=== PATIENT | male | born 1960 | race Hispanic/Latino ===

== ENCOUNTER 2017-04-11 10:28 | Observation (INO) | payer OTHER ==
[~2017-04-11] VITALS: Ht 167.6 cm; Wt 90.7 kg
[2017-04-11 11:27] LABS: BASOPHILS % 0.3 % (0.0-1.0); EOSINOPHILS # (AUTO) 0.1 (0.0-0.4); EOSINOPHILS % 1.6 % (0.0-6.0); HEMATOCRIT 36.7 % (38.2-49.6); HEMOGLOBIN 13.2 g/dL (14.0-18.0); LYMPHOCYTES # (AUTO) 1.9 (1.0-3.2); LYMPHOCYTES % 29.8 % (18.0-39.1); MEAN CORPUSCULAR HEMOGLOBIN 32.1 pg (28-32); MEAN CORPUSCULAR VOLUME 89.3 fL (81-99); MONOCYTES # (AUTO) 0.5 (0.2-0.8); MONOCYTES % 7.1 % (4.4-11.3); NEUTROPHILS # (AUTO) 3.9 (2.1-6.9); NEUTROPHILS % 60.9 % (38.7-80.0); PLATELET COUNT 197 x10e3/uL (140-360); RED BLOOD COUNT 4.11 x10e6/uL (4.3-5.7); RED CELL DISTRIBUTION WIDTH 12.8 % (11.7-14.4)
[2017-04-11 11:41] LABS: AMPHETAMINES SCREEN,URINE NEGATIVE (NEGATIVE); BENZODIAZEPINES SCREEN,URINE NEGATIVE (NEGATIVE); CANNABINOIDS SCREEN,URINE NEGATIVE (NEGATIVE); PHENCYCLIDINE SCREEN,URINE NEGATIVE (NEGATIVE)
[2017-04-11 11:41] LABS: INR 0.86; PROTHROMBIN TIME 12.1 seconds (11.9-14.5)
[2017-04-11 11:42] LABS: PARTIAL THROMBOPLASTIN TIME 21.6 seconds (23.8-35.5)
[2017-04-11 11:49] LABS: ALANINE AMINOTRANSFERASE 20 IU/L (0-55); ALBUMIN 4.3 g/dL (3.5-5.0); ALBUMIN/GLOBULIN RATIO 1.2 (0.8-2.0); ALKALINE PHOSPHATASE 51 IU/L (40-150); ANION GAP 14.1 mmol/L (8-16); BLOOD UREA NITROGEN 15 mg/dL (7-26); BUN/CREATININE RATIO 15 (6-25); CALCIUM 9.6 mg/dL (8.4-10.2); CARBON DIOXIDE 23 mmol/L (22-29); CHLORIDE 104 mmol/L (98-107); CREATINE KINASE 60 IU/L (30-200); CREATININE, SERUM 0.99 mg/dL (0.72-1.25); EST GLOMERULAR FILTRATION RATE > 60 ML/MIN (60-); GLUCOSE 99 mg/dL (74-118); POTASSIUM 4.1 mmol/L (3.5-5.1); SODIUM 137 mmol/L (136-145)
[2017-04-11 11:55] LABS: TROPONIN I 0.001 ng/mL (0-0.300)
[2017-04-11 12:01] LABS: ANISOCYTOSIS SLIGHT; EOSINOPHILS % (MANUAL) 2 % (0-7); LYMPHOCYTES % (MANUAL) 28 % (19-48); MONOCYTES % (MANUAL) 9 % (3.4-9.0); NEUTROPHILS % (MANUAL) 59 % (40-74); PLATELET ESTIMATE ADEQUATE; PLATELET MORPHOLOGY COMMENT NORMAL; RBC MORPHOLOGY COMMENT NORMAL
[2017-04-11] MEDS ORDERED: DIATRIZOATE MEGL/DIATRIZOA SOD 30 ML BTL PO ONE (14:12)
[2017-04-11] MEDS ORDERED: PANTOPRAZOLE INJ 80 MG in SODIUM CHLORIDE 0.9% 100 ML IV SCH (14:30)
--- NOTE | 2017-04-11 15:37 | Consultation ---
DATE OF CONSULTATION: April 11, 2017 GASTROENTEROLOGY CONSULTATION CHIEF COMPLAINT: Melena. HISTORY OF PRESENT ILLNESS: A very pleasant 57-year-old man coming with epigastric pain and melena, symptoms over the last few days. He also had some hypotension that has resolved. He takes nonsteroidals on a daily basis. PAST MEDICAL HISTORY: Not significant. See old records. He has some hypertension. FAMILY HISTORY: Noncontributory. SURGICAL HISTORY: Not significant. MEDICATIONS: See list. SOCIAL HISTORY: Lives at home. No toxic habits. REVIEW OF SYSTEMS: Patient's 12-point review of systems is negative except for the epigastric pain and some melena. ALLERGIES: NOT SIGNIFICANT. PHYSICAL EXAMINATION VITAL SIGNS: Blood pressure 140/80, pulse 70, temperature 98. GENERAL: A well-nourished man in no distress. HEENT: No pallor. ABDOMEN: Soft. Slightly tender in the epigastrium. ASSESSMENT AND PLAN: Melena. Hemoglobin is 13. I recommend a PPI. He needs a colonoscopy. Follow closely. Job#: [id number] NIKOLE
[2017-04-11] MEDS: SODIUM CHLORIDE 0.9% 1000ML 1,000 ML IV SCH ×2 (16:05→22:28)
[2017-04-11] MEDS: PANTOPRAZOL 40MG/SOD CHL 0.9% 50 ML IV SCH ×2 (16:06→19:36)
[2017-04-11] MEDS ORDERED: ASPIR 8181 MG PO (16:21)
[2017-04-11] MEDS ORDERED: SIMVASTATIN20 MG PO (16:21)
[2017-04-11] MEDS ORDERED: LISINOPRIL10 MG PO (16:21)
--- NOTE | 2017-04-11 17:17 | Diagnostic Imaging Report ---
PROCEDURE: CT ABDOMEN AND PELVIS WITH CONTRAST TECHNIQUE: The abdomen and pelvis were scanned utilizing a multidetector helical scanner from the diaphragm to the lesser trochanter after the IV administration of 100 cc Isovue 370 and the oral administration of Gastrografin. Coronal and sagittal multiplanar reformations were obtained. COMPARISON: None. INDICATIONS: GI BLEED FINDINGS: LOWER THORAX: Normal. HEPATOBILIARY: No focal hepatic lesion or intrahepatic biliary ductal dilatation. The gallbladder is unremarkable. SPLEEN: No splenomegaly. PANCREAS: No focal masses or ductal dilatation. ADRENALS: No adrenal nodules. KIDNEYS/URETERS: No hydronephrosis, stones, or solid mass lesions. PELVIC ORGANS/BLADDER: Urinary bladder is unremarkable. Prostate and seminal vesicles appear normal. PERITONEUM / RETROPERITONEUM: No ascites. No pneumoperitoneum. LYMPH NODES: No pelvic sidewall, retroperitoneal, or mesenteric lymphadenopathy. VESSELS: The abdominal aorta, major branch vessels, and iliac arterial systems are well-visualized and patent. Hepatic arterial anatomy appears conventional. 2 renal arteries perfuse each kidney. Portal vein, splenic vein, and central superior mesenteric vein are patent. GI TRACT: The large bowel is notable for multiple diverticula along the course of the descending and sigmoid colon, without wall thickening or adjacent inflammatory change. The appendix is normal. There is no small bowel dilatation to suggest obstruction. BONES AND SOFT TISSUES: No focal soft tissue abnormalities. No osseous destructive lesions. Mild degenerative joint disease of the hips. Multilevel degenerative disc changes of the lumbar spine. Healed fracture deformities of the right lateral eighth and ninth ribs. IMPRESSION: No acute intra-abdominal or pelvic CT abnormalities. Sigmoid diverticulosis without evidence of diverticulitis. Dictated by: Jeffry Haney M.D. on 04/11/2017 at 17:25 Electronically approved by: Jeffry Haney M.D. on 04/11/2017 at 17:25
[2017-04-11] MEDS ORDERED: SODIUM CHLORIDE 0.9% 50ML 50 ML ONE (17:34)
[2017-04-11] MEDS ORDERED: IOPAMIDOL 370 MG/ML 200 ML INFUS..BTL INJ ONE (17:34)
[2017-04-11 17:50] VITALS: BP 117/73
[2017-04-11] MEDS ORDERED: PEG (High)/E-LYTE SOLN 4,000 ML BTL PO NR (18:00)
[2017-04-11 18:26] VITALS: BP 117/73
[2017-04-11 20:00] VITALS: BP 128/81
[2017-04-11 20:19] LABS: HEMATOCRIT 33.2 % (38.2-49.6); HEMOGLOBIN 11.9 g/dL (14.0-18.0)
[2017-04-12] VITALS: BP 109/68
[2017-04-12] MEDS: PANTOPRAZOL 40MG/SOD CHL 0.9% 50 ML IV SCH ×6 (00:49→21:30)
[2017-04-12 00:51] LABS: HEMOGLOBIN 11.2 g/dL (14.0-18.0)
[2017-04-12 04:00] VITALS: BP 107/61
[2017-04-12] MEDS: SODIUM CHLORIDE 0.9% 1000ML 1,000 ML IV SCH ×4 (06:07→22:28)
[2017-04-12 06:28] LABS: HEMATOCRIT 30.8 % (38.2-49.6)
[2017-04-12 08:27] VITALS: BP 107/66
[2017-04-12] MEDS ORDERED: THIAMINE HCL INJ 100 MG in SODIUM CHLORIDE 0.9% 50ML 50 ML IV SCH (11:15)
[2017-04-12] MEDS ORDERED: THIAMINE HCL INJ 100 MG/ML 2ML VIAL IV ONE (11:15)
--- NOTE | 2017-04-12 11:38 | History and Physical ---
CHIEF COMPLAINT: Passing black stool. HISTORY OF PRESENT ILLNESS: This 57-year-old male patient, with history of chronic alcohol use, drinks a 16-ounce can of beer several times every day, has been drinking for several years, developed some abdominal discomfort and flu-like symptoms for the past 3 to 4 days. He started to notice black stool and went to see his primary care physician, Dr. Buchanan. The patient's blood pressure was unusually normal. He states it usually runs high. Also, he was taking aspirin. The patient was advised to stop the aspirin and go to the emergency room. The patient is admitted now for gastrointestinal bleeding. He had some abdominal discomfort and took some [place] with some relief. No fever. PAST MEDICAL HISTORY: Hypertension and alcohol dependence. PERSONAL HISTORY: Denies smoking. Drinks alcohol for more than 25 to 30 years. Used to do all the drugs in his 20s. The patient was told he might have hepatitis several years ago. SURGICAL HISTORY: Cataracts and left hand broken. MEDICATIONS 1. Lisinopril 10 mg daily. 2. Simvastatin 20 mg daily. 3. Aspirin 81 mg daily. REVIEW OF SYSTEMS: All other systems were reviewed. No complaints reported. PHYSICAL EXAMINATION VITALS: Blood pressure 109/68, pulse 94, temperature 98.5. HEENT: Normal. NECK: No JVD. LUNGS: Clear. ABDOMEN: Soft and nontender. Bowel sounds are normal. No ascites. LOWER EXTREMITIES: No edema. SKIN: Normal. No spider nevi. 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 LABS: Hemoglobin 13.2 on admission and dropped to 11. LFTs are normal. ASSESSMENT: Passing black stool with a history of chronic alcohol dependence, rule out esophageal varices, rule out gastritis. PLAN: GI consult for EGD and colonoscopy. Discussed with the patient at length to consider to stop drinking alcohol. Will place him on thiamine and folic acid. Hold aspirin. IV Protonix. Job#: [id number]
[2017-04-12 12:04] LABS: HEMATOCRIT 30.7 % (38.2-49.6)
[2017-04-12 12:24] VITALS: BP 107/67
[2017-04-12] MEDS ORDERED: PROPOFOL IV EMULSION 10 MG/ML 20 ML VIAL ONE (14:32)
[2017-04-12] MEDS ORDERED: LIDOCAINE HCL 2% LOCAL INJ 5 ML SDV VIAL INJ ONE (14:32)
[2017-04-12 16:59] VITALS: BP 95/50
[2017-04-12 19:29] LABS: HEMATOCRIT 29.6 % (38.2-49.6); HEMOGLOBIN 10.6 g/dL (14.0-18.0)
[2017-04-12 19:54] VITALS: BP 117/67
[2017-04-12] MEDS ORDERED: MIDAZOLAM HCL 2 MG/2 ML VIAL ONE (20:22)
[2017-04-12] MEDS ORDERED: FENTANYL CITRATE/PF 100MCG/2 ML INJ ONE (20:22)
[2017-04-13 00:50] LABS: HEMATOCRIT 27.5 % (38.2-49.6); HEMOGLOBIN 9.9 g/dL (14.0-18.0)
[2017-04-13 01:35] VITALS: BP 120/65
[2017-04-13] MEDS: PANTOPRAZOL 40MG/SOD CHL 0.9% 50 ML IV SCH ×3 (02:09→12:00)
[2017-04-13 05:05] VITALS: BP 115/67
[2017-04-13 06:23] LABS: HEMATOCRIT 28.1 % (38.2-49.6)
[2017-04-13] MEDS: SODIUM CHLORIDE 0.9% 1000ML 1,000 ML IV SCH (06:40)
[2017-04-13 08:37] VITALS: BP 117/78
[2017-04-13] MEDS ORDERED: FOLIC ACID/CYANOCOB/PYRIDOXINE TAB PO SCH (09:00)
[2017-04-13 11:30] VITALS: BP 121/77
[2017-04-13] MEDS ORDERED: OMEPRAZOLE40 MG PO (11:58)
[2017-04-13] MEDS ORDERED: FOLIC ACID1 MG PO (11:59)
[2017-04-13] MEDS ORDERED: THIAMINE HCL50 MG PO (11:59)
--- NOTE | 2017-04-14 04:21 | Discharge Summary ---
A 57-year-old male patient history of chronic alcohol abuse, admitted with gastrointestinal bleeding. Patient was consulted by gastroenterology. He had EGD and colonoscopy. Colonoscopy revealed diverticulosis, uncomplicated internal hemorrhoid. EGD showed hiatal hernia, gastritis, chronic duodenal ulcer. Biopsy was taken. Patient was given IV fluids, Protonix, thiamine, folic acid. Feels better. He will be discharged home with omeprazole, thiamine and folic acid. Advised to stop drinking alcohol. Follow up with Dr. Buchanan, PCP. GET MAGANA MD Job#: [id number] GE
== END 2017-04-13 12:48 | disposition home or self-care (01) ==
LOC: ER 10:28 → ERHOLD 14:40 → IMCU 17:14
PROVIDERS: ADMIT Internal Medicine; ATTEND Internal Medicine
DX: K29.50 Unspecified chronic gastritis without bleeding (principal); K92.1 Melena; F10.20 Alcohol dependence, uncomplicated; K26.7 Chronic duodenal ulcer without hemorrhage or perforation; K44.9 Diaphragmatic hernia without obstruction or gangrene; K57.30 Diverticulosis of large intestine without perforation or abscess without bleeding; K64.8 Other hemorrhoids
CPT/HCPCS: 36415 ×3; 43239; 45378; 74177; 80053; 80307; 82550; 82553; 84484; 85014 ×3; 85018 ×3; 85025; 85610; 85730; 88305; 88312; 93005; 99284; G0378 ×3; J2001; J2250; J3411; J7030 ×2; Q9967